=== PATIENT | female | born 1980 | race Caucasian/White ===

== ENCOUNTER 2022-12-17 14:08 | Outpatient (CLI) | payer MEDICAID, SELFPAY ==
--- NOTE | 2022-12-17 14:40 | CRLHL7_ITS ---
For Patients: As a result of the Century Cures Act, medical imaging exams and procedure reports are released immediately into your electronic medical record. You may view this report before your referring provider. If you have questions, please contact your health care provider. BILATERAL SCREENING MAMMOGRAM WITH COMPUTER-AIDED DETECTION AND TOMOSYNTHESIS TECHNIQUE: CC and MLO views were obtained. These mammographic images have been obtained using full-field digital technique. These mammographic images were interpreted with the benefit of computer-aided detection. Breast Tomosynthesis was used in this interpretation. COMPARISON FILM: 09/24/21, 06/05/20. FINDINGS: There are scattered areas of fibroglandular density IMPRESSION: There is no radiographic evidence for malignancy. ASSESSMENT: BI-RADS Category 1: Negative RECOMMENDATION: Routine screening mammogram in 1 year. A lay language report of this examination will be provided to the patient. Ray Houston M.D. Diagnostic Radiologist [email or web address] ANUSHA/Dictated by: Ray Houston MD @ 12/18/2022 8:52:00 AM (Electronically Signed)
== END 2022-12-17 14:09 | disposition home or self-care (01) ==
LOC: MAMMO 14:09
PROVIDERS: PCP Physician Assistant Medical; Visit Provider Physician Assistant Medical
DX: Z12.31 Encounter for screening mammogram for malignant neoplasm of breast (principal); Z80.3 Family history of malignant neoplasm of breast
CPT/HCPCS: 77063; 77067

== ENCOUNTER 2023-04-07 08:35 | Outpatient (CLI) | payer MEDICAID, SELFPAY ==
--- NOTE | 2023-04-07 08:45 | CRLHL7_ITS ---
For Patients: As a result of the Century Cures Act, medical imaging exams and procedure reports are released immediately into your electronic medical record. You may view this report before your referring provider. If you have questions, please contact your health care provider. BILATERAL BREAST MRI WITHOUT AND WITH GADOLINIUM, 04/07/2023 CLINICAL HISTORY: Strong family history of breast cancer. No current breast related concerns. INDICATION FOR BREAST MRI: High-risk screening breast MRI. COMPARISON STUDIES: Mammograms 12/17/2022, 09/24/2021 and 06/05/2020. No prior breast MRIs. CONTRAST: 20 mL Dotarem. TECHNIQUE: The patient was positioned prone using a breast coil. Multiple imaging sequences were obtained using 1-1.5 mm thick slices with no gap. The image sequences include T2-weighted STIR in the axial plane, T1-weighted nonfat-saturated gradient echo in the axial plane, pre- and post-contrast T1-weighted FLASH 3D with fat suppression in the axial plane, and T1-weighted FLASH high resolution 3D with fat suppression in the sagittal plane. Image post-processing was performed on a [employer] workstation. Complex 3D rendering including maximum intensity projections (MIPS) and volumetric renderings were obtained to optimize visualization of the extent of pathology and relationship to the nipple, skin, and chest wall. This aids in determining feasibility of breast conservation surgery. Subtraction, multiplanar reconstruction, mean curve determination, and angiogenesis mapping were also performed. The study was technically adequate. FINDINGS: Amount of Fibroglandular Tissue: Scattered fibroglandular tissue. Breast Background Enhancement: Moderate. RIGHT Breast: There is no suspicious mass or enhancement within the breast. A benign intramammary lymph node is present in the outer central breast and stable mammographically. LEFT Breast: There is no suspicious mass or enhancement within the breast. Lymph Nodes: No abnormal morphology lymph nodes. IMPRESSIONS AND RECOMMENDATIONS: 1. No MRI evidence of malignancy in either breast. 2. Annual screening mammography is recommended. If clinically indicated, continued screening breast MRI may also be performed, staggered at six-month intervals with screening mammography. BI-RADS Category 1: Negative Dictated by Rhonda Dunn MD @ 04/09/2023 10:55:42 AM jj/Dictated by: Rhonda Dunn MD @ 04/09/2023 10:55:00 AM (Electronically Signed)
== END 2023-04-07 08:36 | disposition home or self-care (01) ==
LOC: MRI 08:35
PROVIDERS: PCP Physician Assistant Medical; Visit Provider Physician Assistant Medical
DX: Z12.39 Encounter for other screening for malignant neoplasm of breast (principal); Z80.3 Family history of malignant neoplasm of breast
CPT/HCPCS: 77049; A9575

== ENCOUNTER 2024-04-06 08:29 | Outpatient (CLI) | payer MEDICAID, SELFPAY | END 2024-04-06 08:30 | disposition home or self-care (01) | LOC: NFLDREF 04-10 13:41 | PROVIDERS: PCP Physician Assistant Medical; Referring Provider Physician Assistant Medical; Visit Provider Physician Assistant Medical | DX: R73.03 Prediabetes (principal); Z13.0 Encounter for screening for diseases of the blood and blood-forming organs and certain disorders involving the immune mechanism; Z13.6 Encounter for screening for cardiovascular disorders; Z13.29 Encounter for screening for other suspected endocrine disorder | CPT/HCPCS: 80048; 80061; 84443 ==

== ENCOUNTER 2024-04-18 11:36 | Outpatient (CLI) | payer MEDICAID, SELFPAY ==
[2024-04-18 18:48] LABS: Chlamydia DNA Amplified* NOT DETECTED (No Detected); GC DNA Amplified* NOT DETECTED (No Detected)
[2024-04-20 18:59] LABS: HPV Source Cervix; HPV, High Risk by TMA Not Detected
== END 2024-04-18 11:37 | disposition home or self-care (01) ==
PROVIDERS: PCP Physician Assistant Medical; Visit Provider Physician Assistant Medical
DX: Z11.3 Encounter for screening for infections with a predominantly sexual mode of transmission (principal); Z11.51 Encounter for screening for human papillomavirus (HPV); Z12.4 Encounter for screening for malignant neoplasm of cervix
CPT/HCPCS: 87491; 87591; 87624; 87625; 88141; 88142

== ENCOUNTER 2024-04-20 13:29 | Outpatient (CLI) | payer MEDICAID, SELFPAY ==
--- NOTE | 2024-04-20 14:00 | CRLHL7_ITS ---
For Patients: As a result of the Century Cures Act, medical imaging exams and procedure reports are released immediately into your electronic medical record. You may view this report before your referring provider. If you have questions, please contact your health care provider. BILATERAL SCREENING MAMMOGRAM WITH COMPUTER-AIDED DETECTION AND TOMOSYNTHESIS TECHNIQUE: CC and MLO views were obtained. These mammographic images have been obtained using full-field digital technique. These mammographic images were interpreted with the benefit of computer-aided detection. Breast Tomosynthesis was used in this interpretation. COMPARISON FILM: 12/17/22, 09/24/21, 06/05/20. FINDINGS: There are scattered areas of fibroglandular density. IMPRESSION: There is no radiographic evidence for malignancy. ASSESSMENT: BI-RADS Category 1: Negative RECOMMENDATION: Routine screening mammogram in 1 year. A lay language report of this examination will be provided to the patient. Ray Houston M.D. Diagnostic Radiologist [email or web address] SP/Dictated by: Ray Houston MD @ 04/21/2024 12:20:00 PM (Electronically Signed)
== END 2024-04-20 13:30 | disposition home or self-care (01) ==
LOC: MAMMO 13:29
PROVIDERS: PCP Physician Assistant Medical; Visit Provider Physician Assistant Medical
DX: Z12.31 Encounter for screening mammogram for malignant neoplasm of breast (principal)
CPT/HCPCS: 77063; 77067

== ENCOUNTER 2024-05-03 08:30 | Outpatient (RCR) | payer MEDICAID, SELFPAY ==
--- NOTE | 2024-04-21 14:47 | OT.OPOE ---
OT Outpatient Ortho Eval OT Outpatient Ortho Eval* Start: 04/21/24 10:09 Freq: Status: Active Protocol: Document 04/21/24 10:09 MICHELLE (Rec: 04/21/24 14:45 CHRISTIANOMendoza [id number]) E-signed By Ammy Gomes, OTR/L, CLT OT OP Ortho Eval Details Complexity Complexity Medium Insurance Information Insurance Information [employer] Other Insurance [place] Outpatient History/Precautions Current Condition/Medical Diagnosis Referring Provider Cesia Bennett PA-C Medical Diagnoses Pain of both thumbs M79.644; M79.645 Treatment Diagnosis Stiffness of L thumb M25.642 Stiffness of R thumb M25.641 Date of Onset Chronic, past 2 years but recently much worse. Other Conditions PMH includes but is not limited to: Hyperlipidemia (Acute) -2023- ASCVD risk 1% E78.5 - Hyperlipidemia, unspecified (ICD-10) Elevated hemoglobin A1c (Acute ) - A1c 6.0% R73.09 - Other abnormal glucose (ICD-10) Family history of breast cancer (Acute) Genetic [facility] 2014 - recommended incorporation of breast MRI into breast cancer screening begnining at age 30 based on ACS/NCCN guidelines at 6 month intervals. Z80.3 - Family history of malignant neoplasm of breast ( ICD-10) Dysmenorrhea (Acute) 06/25/2020-pelvic ultrasound showing endometrial thickness of 16 mm patient followed up with [facility] and had a endometrial biopsy - endometrial biopsy completed 07/17/2020; unremarkable N94.6 - Dysmenorrhea, unspecified (ICD-10) IUD (intrauterine device) in place (Acute) Z97.5 - Presence of ( intrauterine) contraceptive device (ICD-10) Sleep apnea (Acute) Dental appliance G47.30 - Sleep apnea, unspecified (ICD-10) Hypertension (Acute) Started hydrochlorothiazide ; added lisinopril 09/21 I10 - Essential (primary) hypertension (ICD-10) Depression (Acute) Continue with Lexapro 20 mg daily. 07/2021- Trial of adding Wellbutrin 150 mg XL daily. F32.A - Depression, unspecified (ICD-10) Anxiety (Acute) Medications: bupropion HCl XL 150 mg PO DAILY cetirizine (Zyrtec) 10 mg PO QDAY PRN escitalopram oxalate 20 mg PO DAILY lisinopril-hydrochlorothiazide 10-12.5 mg 1 tab PO DAILY Medical/Functional History Medical History Reviewed Yes Prior Level of Function/Mobility Patient is , has three sons ( 14 yo, 12, 10 yo). Works at [employer] in [facility]; [place]; they live together. 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 Patient reports these symptoms to be chronic, past 2 years but recently much worse. No reported change in daily routines/tasks and no acute injury to bilateral thumbs. 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 Provider recommended Voltaren gel and thumb braces which patient did purchase over the counter. The particular style braces patient purchased would not have been the first choice of therapist but patient has worn these the past two nights and reports comfort and improvement in her symptoms so she will keep these for night time use. Showed patient in session day time CMC push braces that supports the CMC joint and allows for movement of the IP thumb joints, this would be a great addition for day time activities (any twisting, carrying, lifting or receptive task). 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 Strength Hand Pinch/Injection Moulding Machine Operator Strength Hand Pinch/Injection Moulding Machine Operator Strength Left Hand,Right Hand Left Hand Injection Moulding Machine Operator Strength Position 1 in Elbow 50 Flexion (lbs) Injection Moulding Machine Operator Strength Position 2 in Elbow 45 Extension (lbs) Lateral Pinch Strength (lbs) 9 Three Point Pinch (lbs) 8 Right Hand Injection Moulding Machine Operator Strength Position 1 in Elbow 30 Flexion (lbs) Injection Moulding Machine Operator Strength Position 2 in Elbow 30 Extension (lbs) Lateral Pinch Strength (lbs) 4 Three Point Pinch (lbs) 3 OT Objective Data Sensation Sensation Assessment Summary Comments Denied any Paresthesia Ulnar, Radial, Median nerves are intact to R and L hand. Light Touch, Pressure, Temp ( hot/cold) are intact bilaterally OT Problems Problems Problems Decreased Strength,Decreased Range of Motion,Decreased Dexterity,Pain,Lifting, Gripping,Pinching Other Problems Writing,Opening Containers Patient Potential Good Assessment Assessment Assessment 43 year old female patient referred to skilled OT following her visit with PCP on 04/18/24 with medical dx of Pain of both thumbs M79.644; M79.645. Patient reports these symptoms to be chronic, past 2 years but recently much worse. No reported change in daily routines/tasks and no acute injury to bilateral thumbs. 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 Provider recommended Voltaren gel and thumb braces which patient did purchase over the counter. The particular style braces patient purchased would not have been the first choice of therapist but patient has worn these the past two nights and reports comfort and improvement in her symptoms so she will keep these for night time use. Showed patient in session day time CMC push braces that supports the CMC joint and allows for movement of the IP thumb joints, this would be a great addition for day time activities (any twisting, carrying, lifting or receptive task). 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 Denied any Paresthesia. PLAN: Instruction and teaching in customized home exercise program with verbal and written instructions; Education and Teaching on Ergonomics, body mechanics, adaptive equipment and adaptations as needed during ADL?s; Splint/bracing chan/ doff, wearing schedule; Education on CMC arthritis, and modalities as needed to teach pain. Pt will be referred to Ortho provider should symptoms persist or worsen. Patient is agreeable to the plan and motivated to make progress. Anticipated to make great progress towards written goals in POC. Occupational Therapy Treatment Plan - OP Potential Rehabilitation Potential Good Set Goals Goals Set with Patient Yes Goals Goals 1. After 3 treatment sessions, patient will be able to verbalize 6 adaptive strategies to protect joint integrity to have less pain with ADL/IADL & leisure activities. 2. In order to show improvement in bilateral hand function, patient will reduce score on the Quick Dash from 46 points to less than 37 points. 3. There is high-level evidence that supports a standardized protocol of thumb proprioception exercises to address related deficits and improve ADL performance. Therapist will advance patient through all 3 stages of her individualized HEP while using errorless learning for accuracy of program. Patient will be able to demonstrate 100% of her program with use of visual/written aids. 4. In 8 weeks, pt will demonstrate: 1) Decreased pain to <2/10 80% of the time with sustained gripping & carrying tasks (ex: holding a coffee cup, carrying in groceries in the house, holding open a book ). Target Date 8 weeks Treatment Plan Treatment Plan Evaluation,Edema Control, Iontophoresis,Joint Mobilization,Manual Therapy, Ultrasound,Therapeutic Exercise,Therapeutic Activities,Self Care/Home Management,Education Expected Frequency 1x Week Expected Duration 12 weeks Certification Certification Statement I Certify That: Therapy Services Provided, Therapy Plan Established, Therapy Plan Reviewed Certification Information Clinic ID # [id number] Initial Certification Date 04/21/24 Recertification Due Date 07/20/24 Provider Signature Required Yes Provider Signature Shows Agreement With POC & Medical Necessity Physician NPI Number Write NPI# Here Physician Comment/Change Comment or Changes Physician Signature & Date Requested Please Sign/Date Here
== END 2024-07-05 10:12 | disposition home or self-care (01) ==
PROVIDERS: PCP Physician Assistant Medical; Visit Provider Physician Assistant Medical
DX: M79.644 Pain in right finger(s) (principal); M79.645 Pain in left finger(s); M25.641 Stiffness of right hand, not elsewhere classified; M25.642 Stiffness of left hand, not elsewhere classified; Z51.89 Encounter for other specified aftercare
CPT/HCPCS: 97110; 97140; 97166; X5282

== ENCOUNTER 2024-05-06 09:30 | Outpatient (CLI) | payer MEDICAID, SELFPAY ==
--- OUTSIDE RECORDS SUMMARY | 2024-05-05 16:47 | XMS_ITS | Clinical Summary ---
Author Organization [facility] Address [place], [place] [address] Care Team Providers Care Vacuum Tester Cans Name Role Phone Pcp, No Primary Care Provider Unavailabl e Allergies Active Allergy Reactions Criticality Noted Date Comments Codeine Phosphate *Unknown 06/27/2013 Codeine Sulfate *Unknown 06/27/2013 Medications VITS W-CA,FE,FA,<1M G, ( VITAMIN ORAL)Indicatio ns: Take 2 tablets by mouth 2 times daily. Indications: Active acetaminophen (TYLENOL) 325 mg tablet Take 1-2 tablets by mouth every 4 hours if needed for Other (Specify) (mild pain). Max acetaminophen dose: 4000mg in 24 hrs. 100 tablet 0 4 Active ibuprofen (MOTRIN IB) 200 mg tablet Take 1-3 tablets by mouth every 6 hours if needed for Other (Specify) (for uterine cramping). Take with food. 100 tablet 0 4 Active Active Problems Problem Noted Date Diagnosed Date History of delivery, currently 07/22/2013 Group B Streptococcus afshin r, +RV culture, currently 07/22/2013 Spontaneous vaginal delivery 07/22/2013 Premature 07/22/2013 Anemia complicating 07/22/2013 Estimated Date of Delivery Comme nts Yes 08/19/2013 Based on Other B asis Social History Tobacco Use Types Packs/Day Years Used Date Smoking Tobacco: Never Alcohol Use Standard Drinks/Week Comments No 0 (1 standard drink = 0.6 oz pur e alcohol) Estimated Date of Delivery Comme nts Yes 08/19/2013 Based on Other B asis Sex and Gender Information Value Date Recorded Sex Assigned at Not on file Legal Sex Female 1:26 PM 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 Gender Identity Not on file Sexual Orientation Not on file Obstetrics History Para Term AB IAB SAB Ectopic Multiple Livin g Live Births 3 2 0 2 0 0 0 0 0 2 2 Date Outcome GA Total Labor Labor/2nd/3rd Weight Sex Type Anes PTL Jennifer A1 A5 Name Clin 2010 34w 0d 2.61 kg (5 lb 12 oz) M Vag Epidur al Livin g Jameso n Comments:PROM 2011 36w 0d 3.2 kg (7 lb 1 oz) M Vag Epidur al Livin g Jg Delivery Location:[place] Comments:PTL Current Last Filed Vital Signs Vital Sign Reading Time Taken Comments Blood Pressure 108/80 07/26/2013 10:30 AM CDT Pulse 80 07/26/2013 10:30 AM CDT Temperature 36.4 C (97.5 F) 07/26/2013 10:30 AM CDT Respiratory Rate 18 07/26/2013 10:30 AM CDT Oxygen Saturation 98% 07/23/2013 5:44 PM CDT Inhaled Oxygen Concentration - - Weight 76.7 kg (169 lb 1.6 oz) 07/22/2013 5:00 A M CDT Height 154.9 cm (5' 1) 07/22/2013 5:00 AM CDT Body Mass Index 31.95 07/22/2013 5:00 AM CDT Plan of Treatment Health Maintenance Due Date Last Done Comments Tdap 1991 Depression screening for age 12+ 1992 HIV for age 15-65 1995 BMI (ht and wt on same day) for age 18+ 1998 Hepatitis C screening for age 18-79 1998 Tetanus booster 2000 Pap test for age 21-65 06/25/2023 , 06/25/2020, 06/20/2019, Additional history exists COVID-19 vaccine series ( - 2023- season) 2024 Influenza for age 9-49 01/03/2024 RSV vaccine for adults or (1 - 1-dose 75+ series) 2055 Pneumococcal series for age 6-49 Aged Out No longer eligible based on patient's age to complete this topic Procedures Procedure Name Priority Date/Time Associated Diagnosis Comments STOCK RANCH SUPERVISOR THIN PREP PAP SCREEN IMAGED Routine 06/25/2020 10:00 AM 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 from Last 3 Months or Most Recently Relevant to Health Maintenance Results * STOCK RANCH SUPERVISOR THIN PREP PAP SCREEN IMAGED (06/25/2020 10:00 AM 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) Case Report Gynecologic Cytology Report Case: [id number] Authorizing Provider: Joanna Moore PA-C Collected: 06/25/2020 1000 Ordering Location: [facility] Received: 06/26/2020921 First Screen: Gisell Padilla Specimen: STOCK RANCH SUPERVISOR ThinPrep Vial Screening, Cervical/Vaginal 07/10/2020 10:54 AM 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 [facility] EN[facility]AL [facility] INTERPRETATION/ RESULT NEGATIVE FOR INTRAEPITHELIAL LESION OR MALIGNANCY (NIL) (none) 07/10/2020 10:54 AM 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 [facility] EN[facility]AL LAB[facility]ATORY NISM(S) Shift in rigoberto suggestive of bacterial vaginosis 07/10/2020 10:54 AM 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 [facility] SPECIMEN ADEQUACY Satisfactory for evaluation Endocervical component present 07/10/2020 10:54 AM 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 [facility] EN[facility]AL LAB[facility] HPV REQUEST HPV and PAP 07/10/2020 10:54 AM 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 [facility] Date of LMP 06/25/2020 07/10/2020 10:54 AM 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 [facility] Last Pap Date 06/20/2019 07/10/2020 10:54 AM 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 [facility] Last Pap Result NIL 10:54 AM 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 [facility] Comment:-HPV Additional Information 07/10/2020 10:54 AM 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 [facility] EN[facility]AL LAB[facility]ORY Comment: Interpreted at [employer] [facility], Central Laboratory - [address] [place] [address] [place] [address] Automated Review Successful 07/10/2020 10:54 AM 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 [facility] [employer] [facility] ENTRAL LABORATORY Comment:Specimen processed s uccessfully by automated soaking tank worker device, ThinPrep Imaging System, [employer] ANCILLARY TESTING STOCK RANCH SUPERVISOR HPV Ordered, Please see separate report 07/10/2020 10:54 AM 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 [facility] ENTRAL LABORATORY Note The pap test is a screening technique, not a diagnostic procedure. It is used primarily to screen for squamous cancers and precursor lesions. Published studies have shown that it is subject to both false negative and false positive results. The pap test should not be used as the sole means to diagnose or exclude pre-malignant and malignant lesions. 07/10/2020 10:54 AM 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 [facility] LAB[facility]- ENTRAL LABORATORY Other (Cervical/Vagina l) 06/25/2020 10:00 AM 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 06/26/2020 9:22 AM 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 August Teresa KIM PATHOLOGY/CYTOLOGY Final R esult [facility]-CENTRAL LABORATORY [address] [place] [address], [place] from Last 3 Months or Most Recently Relevant to Health Maintenance Advance Directives * Full Code (Latest Code Status on File) Date Activated Date Inactivated Comments 07/22/2013 5:37 AM 07/22/2013 2:11 PM * Full Code Date Activated Date Inactivated Comments 07/22/2013 4:56 AM 07/22/2013 5:37 AM * Full Code Date Activated Date Inactivated Comments 07/11/2013 11:11 PM 07/12/2013 11:43 AM * Full Code Date Activated Date Inactivated Comments 06/27/2013 2:40 PM 06/27/2013 6:24 PM Care Teams Vacuum Tester Cans Relationship Specialty Start Date End Date Pcp, No . PCP - General 06/07/13
--- NOTE | 2024-05-06 09:30 | CRLHL7_ITS ---
For Patients: As a result of the Century Cures Act, medical imaging exams and procedure reports are released immediately into your electronic medical record. You may view this report before your referring provider. If you have questions, please contact your health care provider. CLINICAL HISTORY: Pelvic pain TECHNIQUE: 2D frias scale ultrasound. In addition color Doppler and spectral Doppler analysis was performed of the pelvis using a transabdominal and transvaginal approach. FINDINGS: The myometrium has a normal uniform echotexture. The uterus measures 8.2 x 4.4 x 5.1 cm. The endometrial lining measures 16 mm in thickness. IUD is present in good position within the endometrial canal. The right ovary measures 2.6 x 1.8 x 1.7 cm in size and the left ovary measures 2.4 x 1.2 x 1.3 cm. The ovaries demonstrate normal arterial and venous blood flow on color Doppler and spectral Doppler analysis. There are no suspicious fluid collections within the cul-de-sac. Incidental dominant follicle left ovary measures 12 millimeters. IMPRESSION: Normal position of an IUD within the endometrial canal. Endometrium measures 16 millimeters. Normal ovaries. No adnexal mass or excess pelvic free fluid. No uterine fibroid. Dictated by Ray Houston MD @ 05/06/2024 11:16:58 AM (Electronically Signed)
== END 2024-05-06 09:31 | disposition home or self-care (01) ==
LOC: US 09:30
PROVIDERS: PCP Physician Assistant Medical; Visit Provider Physician Assistant Medical
DX: R10.2 Pelvic and perineal pain (principal); R93.89 Abnormal findings on diagnostic imaging of other specified body structures
CPT/HCPCS: 76830; 76856; 93976

== ENCOUNTER 2024-10-17 14:07 | Outpatient (CLI) | payer MEDICAID, SELFPAY ==
--- NOTE | 2024-10-17 14:30 | CRLHL7_ITS ---
For Patients: As a result of the Century Cures Act, medical imaging exams and procedure reports are released immediately into your electronic medical record. You may view this report before your referring provider. If you have questions, please contact your health care provider. BILATERAL BREAST MRI WITHOUT AND WITH GADOLINIUM CLINICAL HISTORY: Lifetime risk for breast cancer greater than 20 percent. Family history breast cancer. INDICATION FOR BREAST MRI: Screening in this woman with increased risk for breast cancer. COMPARISON STUDIES: Bilateral mammogram April 20 2024, breast MRI 04/07/2023 CONTRAST: Seventeen mL Dotarem IV. TECHNIQUE: The patient was positioned prone using a breast coil. Multiple imaging sequences were obtained using 1-1.5 mm thick slices with no gap. The image sequences include T2-weighted STIR in the axial plane, T1-weighted nonfat-saturated gradient echo in the axial plane, pre- and post-contrast T1-weighted FLASH 3D with fat suppression in the axial plane, and T1-weighted FLASH high resolution 3D with fat suppression in the sagittal plane. Image post-processing was performed on a [employer] workstation. Complex 3D rendering including maximum intensity projections (MIPS) and volumetric renderings were obtained to optimize visualization of the extent of pathology and relationship to the nipple, skin, and chest wall. This aids in determining feasibility of breast conservation surgery. Subtraction, multiplanar reconstruction, mean curve determination, and angiogenesis mapping were also performed. The study was technically adequate. FINDINGS: Amount of Fibroglandular Tissue: Scattered. Breast Background Enhancement: Mild RIGHT Breast: No suspicious mass or non-mass enhancement LEFT Breast: No suspicious mass or non-mass enhancement Lymph Nodes: No enlarged or morphologically abnormal lymph nodes IMPRESSIONS AND RECOMMENDATIONS: Negative for signs of malignancy. Follow-up with annual screening mammography. If continuing breast MRI this is best offset from the mammogram by 6 months. BI-RADS: 1-negative Dictated by Denia Vicente MD @ 10/18/2024 4:29:02 PM (Electronically Signed)
== END 2024-10-17 14:08 | disposition home or self-care (01) ==
PROVIDERS: PCP Physician Assistant Medical; Visit Provider Physician Assistant Medical
DX: Z12.39 Encounter for other screening for malignant neoplasm of breast (principal); Z91.89 Other specified personal risk factors, not elsewhere classified; Z80.3 Family history of malignant neoplasm of breast
CPT/HCPCS: 77049; C8908; C8937; A9575